=== PATIENT | female | born 1975 | race Asian ===

== ENCOUNTER → 2016-05-04 | Outpatient (CLI) | payer SELFPAY ==
--- NOTE | 2016-05-04 11:39 | CT ---
Study: CT abdomen and pelvis. Indication: RIGHT LOWER QUADRANT PAIN Technique: Venous phase CT imaging of the abdomen and pelvis obtained after intravenous administration of contrast. Comparison: None. Findings: Lower chest, liver, gallbladder, pancreas, spleen, adrenal glands, left kidney unremarkable. Malrotated right kidney noted. Bladder largely collapsed. The uterus is heterogeneous with multiple areas of low density likely reflecting fibroids. An involuting right ovarian follicle is suspected measuring up to 14 mm. There is a large volume of pelvic free fluid which is high density consistent with hemorrhage. In addition, the left ovary is difficult to visualize due to the hemorrhage. Suspected blood clot noted in the superior aspect of the left adnexa, however no adnexal mass is difficult to exclude. Stomach, small bowel, colon, appendix unremarkable. No free air. There is mild hemorrhage tracking superiorly and lies along the liver and spleen. No acute osseous abnormality. Impression: Large volume of intraperitoneal free hemorrhage. No obvious active extravasation identified. Gynecology consultation advised. Heterogeneous uterine myometrium. Further characterization with pelvic sonogram recommended. Suspected blood clot within the left adnexa. Underlying mass lesion at the left ovary not excluded. Attention on pelvic sonogram recommended. Unremarkable appearance of the appendix. Findings and recommendations were discussed with Judson Moya at 1135 hr on 05/04/2016. Electronically signed by: Jv Briones MD 05/04/2016 11:38
== END ==
LOC: CT 09:38
PROVIDERS: ATTEND Nurse Practitioner Family
DX: R10.31 Right lower quadrant pain (principal); R58 Hemorrhage, not elsewhere classified; N83.8 Other noninflammatory disorders of ovary, fallopian tube and broad ligament